=== PATIENT | female | born 1970 | race Caucasian/White ===

== ENCOUNTER 2016-10-28 21:19 | Emergency (ER) | payer BC ==
[~2016-10-28] VITALS: Ht 157.5 cm; Wt 59.1 kg
[~2016-10-28 21:19] MED LIST: AMBIEN 10MG10 MG; AMBIEN 10MG10 MG PO; AMBIEN10 MG PO; AMITRIPTYLINE H25 M1; AMITRIPTYLINE H25 M1 PO; CALCIUM1 CAP PO; CELEXA 20MG20 MG/TA1 PO; CEPHALEXIN500 M1 PO; DAILY VITAMIN1 TAB PO; FLEXERIL10 MG PO; MELOTONIN; Motrin; NORCO 325 MG-51 TAB PO; ROZEREM 8MG TABL8 MG PO; XANAX .25M0.25 MG/TA PO; [UNRECOGNIZED DRUG - OTHER]
[2016-10-28 21:34] VITALS: TEMP 98.9
[2016-10-28 22:23] LABS: BASO % 0.1 % (0.0-2.0); EOS % 0.1 % (0-4.0); GRAN % 56.1 % (42.2-75.2); HEMATOCRIT 38.2 % (37.0-47.0); HEMOGLOBIN 12.9 g/dl (12.5-16.0); LYMPH # 2.5 (1.2-3.4); LYMPH % 34.7 % (20.0-51.0); MEAN CELL VOLUME 90 fl (80.0-100.0); MEAN CORPUSCULAR HEMOGLOBIN 30 pg (27.0-31.0); MEAN CORPUSCULAR HGB CONC 34 g/dl (33.0-37.0); MEAN PLATELET VOLUME 10.1 fl (7.4-10.4); MONO # 0.6 (0.1-0.6); MONO % 8.7 % (1.7-9.3); PLATELET COUNT 249 K/mm3 (130-400); RED BLOOD COUNT 4.24 M/mm3 (4.10-5.30); REDCELL DISTRIBUTION WIDTH-CV 12.3 % (11.5-14.5); WHITE BLOOD COUNT 7.1 K/mm3 (4.8-10.8)
[2016-10-28 22:33] LABS: ADJUSTED CALCIUM 8.9 mg/dL (8.4-10.2); ALBUMIN 3.6 gm/dL (3.5-5.0); BILIRUBIN,TOTAL 0.7 mg/dL (0.0-1.0); CALCIUM 8.6 mg/dL (8.4-10.2); CREATININE, serum 0.87 mg/dL (0.52-1.25); POTASSIUM 3.4 mmol/L (3.4-5.0); TOTAL PROTEIN 6.6 gm/dL (6.4-8.2)
[2016-10-28 22:40] LABS: PH 5 (5-8); URINE APPEARANCE Clear; URINE BACTERIA None Seen /hpf; URINE BILIRUBIN Negative (NEGATIVE); URINE BLOOD Negative (NEGATIVE); URINE COLOR Yellow; URINE GLUCOSE Negative (NEGATIVE); URINE KETONE 1+ (NEGATIVE); URINE UROBILINOGEN >=4.0 mg/dL (NEGATIVE); URINE WBC 0-2 /hpf
[2016-10-28 23:09] VITALS: BP 118/64; PULSE 84
[2017-02-01] MEDS ORDERED: NORCO 325 MG-51 TAB PO (16:36)
== END 2016-10-28 23:09 | disposition home or self-care (01) ==
LOC: COL.ER 21:19
PROVIDERS: Family Medicine
DX: R10.31 Right lower quadrant pain (principal); Z98.84 Bariatric surgery status
CPT/HCPCS: J2270; J2405; J7030

== ENCOUNTER → 2017-02-01 | Emergency (ER) | payer BC ==
[~2017-02-01] VITALS: Ht 157.5 cm; Wt 58.9 kg
[2017-02-01 14:11] VITALS: BP 140/60; PULSE 81; TEMP 98.5
[2017-02-01 15:00] LABS: BASO % 0.2 % (0.0-2.0); GRAN # 4.5 (1.4-6.5); GRAN % 67.9 % (42.2-75.2); HEMATOCRIT 38.9 % (37.0-47.0); HEMOGLOBIN 13.1 g/dl (12.5-16.0); LYMPH # 1.7 (1.2-3.4); LYMPH % 25.5 % (20.0-51.0); MEAN CELL VOLUME 91 fl (80.0-100.0); MEAN CORPUSCULAR HEMOGLOBIN 31 pg (27.0-31.0); MEAN CORPUSCULAR HGB CONC 34 g/dl (33.0-37.0); MEAN PLATELET VOLUME 9.6 fl (7.4-10.4); MONO # 0.4 (0.1-0.6); MONO % 6.1 % (1.7-9.3); PLATELET COUNT 239 K/mm3 (130-400); RED BLOOD COUNT 4.28 M/mm3 (4.10-5.30); REDCELL DISTRIBUTION WIDTH-CV 13.4 % (11.5-14.5); WHITE BLOOD COUNT 6.6 K/mm3 (4.8-10.8)
[2017-02-01 15:03] LABS: PH 6 (5-8); URINE APPEARANCE Hazy; URINE BACTERIA Rare /hpf; URINE BILIRUBIN Negative (NEGATIVE); URINE BLOOD Negative (NEGATIVE); URINE COLOR Yellow; URINE GLUCOSE Negative (NEGATIVE); URINE KETONE 2+ (NEGATIVE); URINE RBC 0-2 /hpf; URINE UROBILINOGEN >=4.0 mg/dL (NEGATIVE); URINE WBC 0-2 /hpf
[2017-02-01 15:11] LABS: ALBUMIN 3.5 gm/dL (3.5-5.0); BILIRUBIN,TOTAL 0.7 mg/dL (0.0-1.0); CALCIUM 8.6 mg/dL (8.4-10.2); CREATININE, serum 0.82 mg/dL (0.52-1.25); POTASSIUM 3.9 mmol/L (3.4-5.0); TOTAL PROTEIN 6.5 gm/dL (6.4-8.2)
== END ==
LOC: COL.ER 14:11
PROVIDERS: Emergency Medicine
DX: N83.201 Unspecified ovarian cyst, right side (principal); M54.5 Low back pain; G47.00 Insomnia, unspecified; Z98.84 Bariatric surgery status; R11.0 Nausea; K57.30 Diverticulosis of large intestine without perforation or abscess without bleeding
CPT/HCPCS: J2765; J3010; J7030; Q9967

== ENCOUNTER → 2019-04-21 | Outpatient (CLI) | payer BC ==
[~2019-04-21] VITALS: Ht 157.5 cm; Wt 61.7 kg
[~2019-04-21] MED LIST changes: +MOBIC15 MG PO; +TOPAMAX50 MG PO
[2019-04-21 16:32] VITALS: BP 110/68; PULSE 78
== END ==
LOC: LIGHT 11:18
DX: Z98.84 Bariatric surgery status (principal); Z68.24 Body mass index [BMI] 24.0-24.9, adult; Z71.3 Dietary counseling and surveillance
CPT/HCPCS: G0463